=== PATIENT | female | born 1975 | race Caucasian/White ===

== ENCOUNTER 2018-05-20 09:13 | Inpatient (IN) | payer OTHER, SELFPAY ==
[2018-05-20] MEDS ORDERED: Ondansetron HCl/PF 4 MG/2 ML Vial ONE (11:57)
[2018-05-20 12:04] LABS: Hemoglobin 4.1 g/dL (12.0-16.0); Mean Corpuscular HGB CONC 29.3 g/dL (32.0-36.0); Mean Corpuscular Hemoglobin 18.3 pg (27.0-31.0); Mean Corpuscular Volume 62.5 fL (78.0-98.0); Mean Platelet Volume 10.2 fL (7.4-10.4); Platelet Count 390 thou/uL (130-400); RBC Distribution Width 18.2 % (11.5-14.5); Red Blood Cell (RBC) Count 2.21 mill/uL (4.20-5.40); White Blood Cell (WBC) Count 8.6 thou/uL (4.8-10.8)
[2018-05-20 12:20] LABS: #Monocytes 0.4 thou/uL (0.11-0.59); #Neutrophils 6.2 thou/uL (1.40-6.50); %Basophils 0.5 % (0.0-1.0); %Eosinophils 0.2 % (0.0-10.0); %Lymphocytes 23.1 % (21.0-51.0); %Monocytes 4.6 % (0.0-10.0); %Neutrophils 71.5 % (42.0-75.0); Anisocytosis SLIGHT = 6-15 cells (100X) (0-5/hpf); Band 1 % (5-11); Hypochromia SLIGHT = 6-15 cells (100X) (0-5/hpf); Lymphocytes 8 % (21-51); MDiff Complete? YES; Monocytes 4 % (0-10); Neutrophil 87 % (42-75); PLT Morphology Comment Appears Adequate
[2018-05-20 15:06] VITALS: BMI 33.0
[2018-05-20] MEDS ORDERED: traMADol HCl 50 MG TAB PO PRN (15:52)
[2018-05-20] MEDS ORDERED: Acetaminophen 500 MG TAB PO PRN (15:52)
[2018-05-20] MEDS ORDERED: Ondansetron ODT 4 MG TAB PO PRN (15:52)
[2018-05-20] MEDS ORDERED: Morphine 2 MG/ML SYRINGE SLOW IVP PRN (16:10)
--- NOTE | 2018-05-20 17:56 | ULT ---
TRANSABDOMINAL AND TRANSVAGINAL PELVIC ULTRASOUND WITH DOPPLER: Date: 05-20-18 Provided Clinical History: Vaginal bleeding. FINDINGS: The uterus measures about 7.3 x 5.3 x 4.3 cm and demonstrates a heterogeneous appearance to the uteri ne myometrium without evidence for focal myometrial mass. There is prominent thickening of the uterin e endometrium, which appears somewhat heterogeneous. Thickness measures up to 1.9 cm. Right ovary measures about 3.8 x 2.8 x 2.7 cm and demonstrates an unremarkable transabdominal sonogra phic appearance. The left ovary is not distinctly identified. Color doppler and spectral analysis of the right ovarian waveform demonstrates normal flow. No significant free pelvic fluid. IMPRESSION: 1. Thickened and somewhat heterogeneous appearing endometrium. The imaging appearance is nonspecific. Consider correlation with tissue sampling or sonohystoagraphy. POS: PETRA
[2018-05-20 18:57] LABS: INR-International Normal Ratio 1.2; PTT 27.4 SEC (22.9-36.1); Prothrombin Time 15.1 SEC (12.0-14.7)
--- NOTE | 2018-05-20 19:45 | HP ---
DATE OF ADMISSION: 05/20/2018 PRIMARY CARE PHYSICIAN: Susie Renae. PRIMARY CANDLEMAKING LABORER: Dr. Salo Montenegro in [place], [place]. CHIEF COMPLAINT: Vaginal bleeding and dizziness and dizziness. HISTORY OF PRESENT ILLNESS: This is a 43-year-old female who [facility] complaining of increased dizziness, feeling like she was going to pass out while shoppin g. The patient admits to associated heavy vaginal bleeding over the last several months after being prescribed anticoagulation to include Pletal, aspirin and Plavix due to history of peripheral vascula r occlusion in the left lower extremity. The patient states she was originally diagnosed with a thro mbosis approximately 3 years prior to this evaluation while taking control pills. The patient was treated with anticoagulation for several months, then discontinued on the therapy. The patient s tates in 02/2018 she noticed discoloration to her toes on the left foot, undergoing evaluation by Vas cular Surgery Service in the [facility] [place], [place]. The patient was noted with occlusion w ith only 1 patent artery with recommendations for medical management. The patient was placed on Plet al, Plavix, and full strength aspirin. The patient states she had heavy menstrual cycles while takin g the anticoagulation and aspirin therapy with large clots passed each month. The patient states she has undergone a battery of recent blood tests by her primary self rising flour mixer within the last week prior to this evaluation. The patient noted increasing fatigue, weakness, dizziness, and shortness of grace ath over the last several months. The patient denies any prior history of blood transfusions. The p chica was transferred from the outside Emergency Department to [facility] after patient's h emoglobin was noted at 4.1. The patient was typed and crossed for 4 units and is currently receiving the second unit out of 4 units total. The patient underwent evaluation after arrival to the [facility] unit including transvaginal ultrasound by SHORTHAND REPORTER services; however, the final results are pen ding. PAST MEDICAL HISTORY: 1. Left lower extremity arterial occlusion in 2014. 2. Recurrent left lower extremity arterial occlusion with anticoagulation initiated in 02/2018. 3. Menorrhagia secondarily to anticoagulation persistent. PAST SURGICAL HISTORY: Status post angiography of the left lower extremity with arterial stent place ment x2 in the left lower extremity. CURRENT MEDICATIONS: 1. Eliquis 5 mg p.o. b.i.d. initiated in the last 4 weeks. 2. Enteric coated aspirin 81 mg p.o. daily. 3. Lipitor 40 mg p.o. daily. 4. Plavix 75 mg p.o. daily. ALLERGIES: IODINE and CONTRAST MATERIAL. FAMILY HISTORY: No inheritable diseases per patient report. SOCIAL HISTORY: The patient resides in the [place], [place] area. Working in the [employer] currently. Positive tobacco use up to half a pack of cigarettes daily. No alcohol or illicit drug use. Accompanied by her daughter and parents in the hospital. REVIEW OF SYSTEMS: The following complete review of systems was negative, unless otherwise mentioned in the HPI or below: Constitutional: Weight loss or gain, ability to conduct usual activities. Skin: Rash, itching. Eyes: Double vision, pain. ENT/Mouth: Nose bleeding, neck stiffness, pain, tenderness. Cardiovascular: Palpitations, dyspnea on exertion, orthopnea. Respiratory: Shortness of breath, wheezing, cough, hemoptysis, fever or night sweats. Gastrointestinal: Poor appetite, abdominal pain, heartburn, nausea, vomiting, constipation, or diarrhea. Genitourinary: Urgency, frequency, dysuria, nocturia. Musculoskeletal: Pain, swelling. Neurologic/Psychiatric: Anxiety, depression. Allergy/Immunologic: Skin rash, bleeding tendency. PHYSICAL EXAMINATION: VITAL SIGNS: On admission, blood pressure 141/80, pulse 94, respiratory rate 16, temperature 98.3 de grees Fahrenheit, O2 saturation 100% on room air. GENERAL APPEARANCE: This is a 43-year-old female, pale-appearing, alert, responsive, tearf ul. HEENT: Pupils are equal, round, and reactive to light and accommodation. Extraocular muscles are in tact. No scleral icterus, no conjunctival injection. Nares patent. OP is clear. Teeth in fair rep air. NECK: Supple, no cervical adenopathy, no thyromegaly, no carotid bruits, no JVD appreciated. Cervic al spine with full active and passive range of motion. No meningeal signs appreciated. CHEST: Lungs are clear to auscultation bilaterally. CARDIOVASCULAR: S1, S2 without noted murmur, rub or gallop. ABDOMEN: Rounded with mild tenderness to palpation in the left lower quadrant. No rebound or guardi ng appreciated. Bowel sounds are positive in all four quadrants. No palpable mass. EXTREMITIES: Warm and dry with fair turgor. No clubbing, cyanosis or asymmetric edema appreciated. Pulses are palpable distally at the dorsalis pedis, posterior tibial, and popliteal arteries bilater ally. Capillary refill less than 2 seconds. NEUROLOGIC: Cranial nerves II-XII are grossly intact. No focal or lateralizing signs appreciated. PERTINENT LABORATORY AND X-RAY FINDINGS: Serum beta hCG less than 1.20. CBC showed a white blood ce ll count 8.6, hemoglobin 4, hematocrit 13.8, MCV of 63, platelet count 390 with 87% neutrophilia. Pe lvic/transvaginal ultrasound pending at the time of this dictation. Telemetry monitoring by my inter pretation shows sinus rhythm with heart rates in the 80s. ASSESSMENT AND PLAN: 1. Menorrhagia. Suspect multifactorial in conjunction with ongoing anticoagulation with Eliquis, Pl avix, and aspirin. We will hold all anticoagulation. SHORTHAND REPORTER consultation obtained with transvaginal ul trasound performed with results pending. Surgical intervention and options pending. 2. Acute blood loss anemia secondary to chronic anticoagulation. See #1 above. Type and cross for a total of 4 units of packed red blood cells. Serial CBC monitoring. We will obtain Hematology labo ratory values and workup from patient's primary self rising flour mixer in [place], [place]. 3. Left lower extremity peripheral vascular disease. Stable currently. We will hold all anticoagul ation secondary to #1 and #2. 4. We will continue supportive management. 5. Dyspnea. Suspect secondarily to acute anemia. Continue supportive management as outlined previo usly and monitor oxygen saturation. 6. Prophylaxis. Sequential compression devices held due to history of peripheral vascular disease. No anticoagulation due to acute blood loss anemia. Pepcid 20 mg p.o. b.i.d. 7. Code status is FULL. Surrogate medical decision maker is the patient's mother.
[2018-05-20] MEDS: Famotidine 20 MG TAB PO SCH (20:45)
[2018-05-20] MEDS: Sodium Chloride 0.9% 1,000 ML IV SCH (20:45)
--- NOTE | 2018-05-21 01:26 | CON ---
DATE OF CONSULTATION: 05/20/2018 CONSULTING PHYSICIAN: Jose Maria Escalante M.D. CHIEF COMPLAINT: Vaginal bleeding with symptomatic anemia. 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 The patient reports that she in the last month she has experienced increasing shortness of breath, dizziness, and overall fatigue and weakness. The patient reports her vaginal bleeding has acutely gotten worse in the recent days. Baseline for the last several years has been bleeding about 3 or more weeks out of the month that she goes through multiple pads a day and yesterday went through about 11. Today she reports since 5:30 this morning, she has had a change her pad 3 times. The patient has recently been changed from an oral form of heparin to Eliquis prior to this bleeding really getting worse and upon communicating with her provider, she was instructed to stop taking Eliquis yesterday with around noon. The patient reports that she has a history of peripheral artery disease. She had lower extremity arterial occlusion x3 and has had 2 stents placed in the last 3 years. She reports the name of her primary welding machine operator resistance is Dr. Ritchie Montenegro at [facility] in [place], phone number [phone]. On initial evaluation in [facility] emergency room, the patient was noted to have a hemoglobin of 4.2 and a hematocrit of 12.6 and her previous ER records from [facility], there is a documentation that she had a hemoglobin of 9 approximately 4 months prior to this visit and since arrival, all of her Plavix and her aspirin and have also been discontinued by her primary physician, Dr. Hernández. She reports that she has had less bleeding and again she changed her pad 3 times since about 5:30 this morning. PAST MEDICAL HISTORY: Peripheral arterial disease with previous occlusions. PAST SURGICAL HISTORY: Multiple surgeries for arterial stenting. SOCIAL HISTORY: Positive tobacco use, denies alcohol or drug use. 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 ALLERGIES: IODINE and IODINE CONTAINING PRODUCTS. MEDICATIONS: Eliquis 5 mg taken daily until yesterday was her last dose, aspirin 81 mg daily, Lipitor 40 mg daily, and Plavix 75 mg. REVIEW OF SYSTEMS: The patient reports increased dizziness, shortness of breath , overall weakness, increasing fatigue, abdominal cramping, nausea, and vaginal bleeding. The patient denies weight changes. Denies rash or itching. Denies chest pain. Denies poor appetite, diarrhea or constipation. Denies urinary urgency or frequency. Denies skin rash. PHYSICAL EXAMINATION: VITAL SIGNS: Blood pressure 117/65, satting 100% on room air, respiratory rate 20, temperature 99.0, pulse of 83. GENERAL: The patient appears to be in no acute distress. She appears worried at times in our conversation. She, time of our conversation, was receiving her second unit of blood and had color returning to her face since the initial contact today made with her and her family. HEAD: Normocephalic, atraumatic. LUNGS: Clear to auscultation bilaterally. HEART: Regular rate and rhythm. ABDOMEN: Soft. EXTREMITIES: Nontender, nonedematous. LABORATORY DATA: Hemoglobin on arrival this morning, she has had a white count of 8.6, hemoglobin of 4.1, hematocrit 13.8, platelets of 390,000. Quantitative hCG of less than 1. PT of 15.1, INR of 1.2, PTT of 27.4. A transvaginal ultrasound shows a uterus measuring 7.3 x 5.3 x 4.3 cm without any evidence of focal myometrial masses, report describes an endometrial lining of up to 1.9 cm. Right ovary is measuring about 3.8 x 2.8 x 2.7 cm. EKG at outside facility showed sinus rhythm. CMP at outside facility shows sodium of 140, potassium of 3.3, chloride of 107, glucose of 105, BUN of 8, creatinine of 0.6, ALT of 15, AST of 17, total bilirubin of 0.6. ASSESSMENT AND PLAN: The patient is a 43-year-old female with a history of peripheral artery disease and prior occlusions of her lower extremities resulting in multiple surgical interventions and stent placement. The patient most recently has been placed on Eliquis, continued on Plavix and aspirin resulting in increasing intensity of her vaginal bleeding with acute on chronic blood loss. The patient has been ordered 4 units of packed red blood cells thus far during this hospitalization. Her bleeding appears to be spontaneously slowing down since discontinuation of her Eliquis yesterday and having her Plavix and aspirin held this morning. In our discussions, patient reports that she has had some conversations with previous physicians about the need for amputation given the severity of her disease; however, received a second opinion , questioning the benefits of such extreme management. Nonetheless, the patient sounds to be dealing with a severe situation requiring persistent anticoagulation. After discussing the case with her primary Machine Technician Dr. Montenegro and partners plan at this time is proceed to the operating room tomorrow for hysteroscopy, D&C, and endometrial ablation in the hopes of resolving her likely source of prolonged bleeding and symptomatic anemia. Any pathology from her curettings that require further surgical management will be dealt with at that time. I believe at this time adding any medical management to slow her bleeding down will only worsen her risk for further clotting in her lower extremities and worsening of her disease. Should the patient's bleeding worsen tonight, we will proceed to the operating room sooner, otherwise plans are for tomorrow morning. After the patient has received 4 units of packed red blood cells and is in a better position for any potential complications of this surgical intervention. I have discussed these options with the patient and her family and they welcome the chance of completely resolving uterine bleeding and are aware of the increased risk of coagulation due to surgical intervention. Once this procedure was completed, discussion will be had with her primary physicians for restarting her anticoagulation once again. STACEY
--- NOTE | 2018-05-21 01:47 | CON ---
DATE OF CONSULTATION: 05/20/2018 Ms. Nieves is a 43-year-old female. She gets her care in [place]. She has a journeyman power plant operator/oncologist and a vascular doctor. She has had problems with severe peripheral vascular disease. She is actually on aspirin, Plavix, and Eliquis. She has had peripheral vascular stenting. She tells me that she has been vaginal bleeding for two straight months. Three years prior to this admission, she was diagnosed with an arterial thrombus while on oral contraceptive agents. I know there is a potential leak between oral contraceptives and venous thrombosis, but most people feel that there is usually another contributing factor. It is agreed that with a thrombotic event, hormone therapy should be discontinued. I am not aware of any literature that links it to arterial thrombosis. I asked her about Buerger disease, and she says 3 years ago, she remembers hearing that name, but her last doctor has told her that she only has "peripheral arterial disease." She apparently has not contacted anybody for her vaginal bleeding until yesterday. She was told to stop her Eliquis yesterday. She became short of breath and decided to come to the emergency room. Her hemoglobin was 4.1. When I inquired as to why she put up with excessive vaginal bleeding for 2 months, she started crying and asked me to go get her father. SOCIAL HISTORY: She has been a smoker in the past. She denies smoking now. PAST MEDICAL HISTORY: Remarkable for lower extremity stent placement, the location is unclear. FAMILY HISTORY: Negative for lung disease at an early age. There is no history of clotting disorders. MEDICATIONS PRIOR TO ADMISSION: Shows Eliquis twice a day, aspirin 81 mg a day , Lipitor 40 mg a day, and Plavix 75 mg a day. ALLERGIES: She reports a CONTRAST allergy. SOCIAL HISTORY: She lives in [facility]. She is working in this area. She has been a half a pack a day smoker. When I asked her if she was smoking, she looked at the other 2 people in the room and then looked back at me and said no. REVIEW OF SYSTEMS: 10 point review of system completed, otherwise negative. PHYSICAL EXAMINATION: GENERAL: Ms. Nieves is a 43-year-old female. VITAL SIGNS: She is afebrile, heart rate 79, respiratory rate is 23, oximetry is 100% on room air, blood pressure 132/69. HEENT: Pupils are equal. Sclerae is anicteric. NECK: Supple. No lymphadenopathy. LUNGS: Clear. HEART: Regular rhythm, no S3. ABDOMEN: Soft and nontender. EXTREMITIES: Without clubbing, cyanosis, or edema. LABORATORY DATA: Hemoglobin was 4.1, MCV 62. This is a lower MCV than I would expect from pure iron deficiency. I would wonder if she does have a coexistent thalassemia. IMPRESSION: 1. Blood loss anemia. 2. ? coexistent thalassemia. 3. Peripheral vascular disease ?Buerger's disease. Unfortunately, she continues to smoke. I did not take discuss loss of the limb with her because of her emotional response to a very simple comment earlier in the interview. She is certainly at risk for dying if she continues to smoke or having a devastating peripheral vascular event. Her clerk general office should be consulted for either a uterine ablation, a hysterectomy or hormonal therapy. If the plan is to keep her on Eliquis (I am not sure whether or not she has hereditary prothrombotic condition such as antithrombin III) that hormone therapies not really contraindicated since she will be fully anticoagulated and that this will stop her menses, it will probably keep her from bleeding to . At this point in time, she is off anticoagulation. It would be helpful if we have medical records from [place]. This is a 70 minute consult, with greater than 50% of time spent on unit with coordination of care. STACEY
[2018-05-21] MEDS: Sodium Chloride 0.9% 1,000 ML IV SCH ×3 (03:00→21:42)
[2018-05-21 04:16] LABS: Anion Gap 11 mmol/L (10-20); BUN (Urea Nitrogen) 8 mg/dL (7.0-18.7); Calc. Creatinine Clearance 149 mL/min (70-130); Calcium 8.3 mg/dL (7.8-10.44); Carbon Dioxide 21 mmol/L (22-29); Chloride 108 mmol/L (98-107); Estimated GFR-MDRD Greater than 90; Glucose 97 mg/dL (70-105); Sodium 136 mmol/L (136-145)
[2018-05-21 04:59] LABS: Hemoglobin 8.1 g/dL (12.0-16.0); Hypochromia SLIGHT = 6-15 cells (100X) (0-5/hpf); Lymphocytes 36 % (21-51); MDiff Complete? YES; Mean Corpuscular HGB CONC 32.6 g/dL (32.0-36.0); Mean Corpuscular Hemoglobin 24.3 pg (27.0-31.0); Mean Corpuscular Volume 74.7 fL (78.0-98.0); Monocytes 3 % (0-10); Neutrophil 61 % (42-75); Nucleated RBC 2 % (0); PLT Morphology Comment Appears Adequate; Platelet Count 289 thou/uL (130-400); Polychromasia SLIGHT = 2-3 cells (100X) (0-2/hpf); RBC Distribution Width 22.4 % (11.5-14.5); Red Blood Cell (RBC) Count 3.33 mill/uL (4.20-5.40); White Blood Cell (WBC) Count 7.8 thou/uL (4.8-10.8)
[2018-05-21] MEDS: Ondansetron HCl/PF 4 MG/2 ML Vial IVP PRN ×2 (07:20→16:35)
[2018-05-21] MEDS: Atorvastatin Calcium 40 MG TAB PO SCH (08:57)
[2018-05-21] MEDS: Famotidine 20 MG TAB PO SCH ×2 (08:57→21:33)
--- NOTE | 2018-05-21 09:03 | PDOC.EVN ---
Event Note - Event Note Event Note: HD 2 OBGYN control valve mechanic Informed Consent process Case reviewed with Dr Valentin. patient seen at bedside with Dr valentin, in room. Patient's RN in room for informed consent. Details on hysteroscopy/D&C/ Ablation given. Failure to diagnose malignancy pre-ablation discussed. Plan for ablation pre-D&C result is due to severity of HMB requiring blood products (4 units). Risks of uterine injury and injury to surrounding structures discussed. Limitation of fertility post ablatiion also discussed. Need for subsequent hysterectomy as a risk also reviewed. Patient given opportunity to ask questions. Answers provided. Patient now off elaquiz and plavix, ASA. Plan to restart elaquis 12-24 hours after ablation. We are on-call to OR with preliminary time set as 1100 today if space available.
[2018-05-21] MEDS ORDERED: Succinylcholine Chloride 20 MG/ML 10 ml SYRINGE FS ONE (10:28)
[2018-05-21] MEDS ORDERED: Ondansetron HCl/PF 4 MG/2 ML Vial ONE (10:28)
[2018-05-21] MEDS ORDERED: Ketorolac Tromethamine 30 MG/ML VIAL ONE (10:28)
[2018-05-21] MEDS ORDERED: PROPOFOL 200 MG/20 ML VIAL ONE (10:28)
[2018-05-21] MEDS ORDERED: Metoclopramide HCl 10 MG/2 ML VIAL ONE (10:28)
[2018-05-21] MEDS ORDERED: Lidocaine 1% PF 5 ML VIAL ONE (10:28)
[2018-05-21] MEDS ORDERED: Dexamethasone 20 MG/5 ML VIAL ONE (10:28)
--- NOTE | 2018-05-21 10:57 | PRG ---
DATE OF SERVICE: 05/21/2018 Ms. Nieves is bleeding a small amount. PHYSICAL EXAMINATION: VITAL SIGNS: She is afebrile, heart rate 70, respiratory rate 18, oximetry is 95-100% on room air, b lood pressure 121/74. LABORATORY: Hemoglobin is up to 8.1 grams. Platelets are normal. LUNGS: Clear. CARDIOVASCULAR: Regular rhythm. ABDOMEN: Nontender. IMPRESSION: Massive chronic vaginal blood loss secondary to anticoagulation. She is tentatively on the schedule for a uterine ablation she tells me. She needs to be restarted on her antiplatelet agents as soon as possible given her peripheral arteria l stents. It would be nice if we had medical records from her health care social worker/oncologist to see what th e true nature of her chronic illness is.
[2018-05-21] MEDS ORDERED: Fentanyl 100 MCG/2 ML VIAL ONE ×2 (12:36→15:09)
[2018-05-21] MEDS ORDERED: Midazolam HCl 2 mg/2 ml Vial ONE (13:04)
[2018-05-21] MEDS ORDERED: Lidocaine 4% Topical Sol 50 ML BOT ONE (13:05)
[2018-05-21] MEDS ORDERED: HYDROmorphone 2 MG/ML VIAL SLOW IVP PRN (14:29)
[2018-05-21] MEDS ORDERED: Ondansetron HCl/PF 4 MG/2 ML Vial IVP PRN (14:29)
[2018-05-21] MEDS ORDERED: Meperidine HCl/PF 25 MG/ML VIAL SLOW IVP PRN (14:29)
[2018-05-21] MEDS ORDERED: Promethazine HCl 25 MG/ML VIAL SLOW IVP PRN (14:29)
[2018-05-21] MEDS ORDERED: Promethazine HCl 25 MG/ML VIAL IM PRN (14:29)
[2018-05-21] MEDS ORDERED: HYDROmorphone 2 MG/ML VIAL ONE (14:33)
[2018-05-21] MEDS ORDERED: Labetalol HCl 100 MG/20 ML VIAL ONE (14:35)
--- NOTE | 2018-05-21 14:43 | OP ---
DATE OF PROCEDURE: 05/21/2018 PREOPERATIVE DIAGNOSES: Patient with suspected peripheral vascular disease on Eliquis previously, also on Plavix and aspirin, with acute vaginal blood loss resulting in severe anemia. POSTOPERATIVE DIAGNOSES: 1. Patient with suspected peripheral vascular disease on Eliquis previously, also on Plavix and aspirin, with acute vaginal blood loss resulting in severe anemia. 2. Status post endometrial ablation with Bhargavi procedure. 3. Diagnostic hysteroscopy. 4. Sharp endometrial curettage. 5. Bhargavi endometrial ablation after cervical dilation to 6 mm. SURGEON: Mickey Foreman M.D. UTILITY WORKER FILM PROCESSING: None. IV FLUIDS: 350 mL crystalloid. URINE OUTPUT: By in and out catheter, about 300 mL ESTIMATED BLOOD LOSS: About 15 mL. COMPLICATIONS: None. COUNTS: Correct. PATHOLOGY: Scant endometrial curettings. FINDINGS: 1. There are no vulvar or vaginal lesions. 2 The endometrial cavity is identified and is free of intracavitary defects. 3. Both ostia are seen. 4. There is scant endometrial tissue with no evidence of proliferative endometrial lining. 5. Uterine cavity size is about 7 with a cervical size of about 3 taken the cavity length to about 4.5. 6. Bhargavi with appropriate 120 second count down from start to finish. 7. Hemostasis post-procedure. Counts correct. DISPOSITION: To recovery room in good and stable condition. TECHNIQUE: After proper informed consent was explained to the patient earlier in the morning at bedside, we took the patient down to room #12 in the main OR. She was placed under general endotracheal anesthesia and positioned in Manuel stirrups without deep hyperflexion or external rotation. The patient's vulva and vagina was prepped and draped in the usual sterile fashion. In and out catheterization of the bladder revealed clear urine about 300 mL. A Graves bivalve speculum was used to visualize the cervix and there was scant vaginal bleeding noted with a small blood clot noted at the cervical os. The cervical os appeared parous and easily accepted a [employer] diagnostic hysteroscope without the use of dilation. We used hydrodilation of the cervix. As the scope entered atraumatically into the cavity, cavity was seen without any overt abnormalities. The scope was then removed and we performed a sharp curettage with the curettings going onto a piece of Telfa. We then used the Bhargavi endometrial ablation device per few instructions, first taking the array length to 4.5, which was the suspected size of the cavity. We then held the vacuum, but in order collapse the array tip in order to it enter atraumatically. Once it was entered, the cervical cuff balloon was inflated with air per IFU. After passing the cavity integrity test, the nerve ablation was done without complication. The cervical cuff was released and the Bhargavi array was withdrawn into the device and it was pulled out of the endometrial cavity without complication. No vaginal packs or sponges or tampons were used. The patient will go to recovery for routine recovery care. STACEY
--- NOTE | 2018-05-21 14:52 | PRG ---
DATE OF SERVICE: 05/21/2018 TIME OF DICTATION: 14:38 TIME OF INTERVENTION: 14:20 POSTOP FOLLOWUP In brief, I discussed with the patient's family (mother, , family friend), the details of the surgery. No complications were identified and this was relayed to them. I advised them to have gyne cology followup for Ms. Nieves in 2 weeks at [facility]. She has a followup appoint ment with Hematology/Oncology in [place] on Thursday and advised them to keep that appointment so that they can discuss restarting the anticoagulant. I have also given a report to Dr. Hernándze with Internal Medicine, who is following this patient as well. I told him that we would effectively sign off now that she has had her treatment. We will follow up the pathology results and the vaginal bleeding in 2 weeks as an outpatient at [facility].
[2018-05-21] MEDS: Lactated Ringer's 1,000 ML IV SCH ×2 (16:35→21:44)
--- NOTE | 2018-05-21 17:21 | PDOC.PN ---
- Subjective Encounter Start Date: 05/21/18 Encounter Start Time: 17:10 Subjective: f/u for menorrhagia s/p uterine ablation and 4u PRBC's. Hgb 8 up from -: 4. Feels better overall. - Objective Resuscitation Status: Resuscitation Status FULL:Full Resuscitation MAR Reviewed: Yes Vital Signs & Weight: Vital Signs (12 hours) Temp Pulse Resp BP Pulse Ox 05/21/18 10:58 97.9 F 65 16 133/78 05/21/18 08:00 100 05/21/18 07:37 97.8 F 75 18 121/74 95 Weight Admit Weight 198 lb 14.4 oz Weight 198 lb 14.4 oz I&O: 05/20/18 05/21/18 05/22/18 06:59 06:59 06:59 Intake Total 1650 0 Output Total 1250 Balance 400 0 Result Diagrams: 05/21/18 03:36 05/21/18 03:36 Additional Labs: Laboratory Tests 05/20/18 05/21/18 10:38 03:36 Hgb 4.1 L* MCV 62.5 L Neutrophils % (Manual) 87 H 61 EKG Reviewed by me: Yes (Tele - SR) Phys Exam - Physical Examination alert, responsive Respiratory: no wheezing, no rales, no rhonchi, clear to auscultation bilateral S1, S2 Cardiovascular: RRR, no significant murmur, no rub, gallop Gastrointestinal: soft, non-tender, no distention, positive bowel sounds diminished L DP compared to R, cool L great and 2nd toe Musculoskeletal: no edema, pulses present Neurological: moves all 4 limbs Psychiatric: A&O x 3 Skin: normal turgor, cap refill <2 seconds Dx/Plan (1) Menorrhagia Code(s): N92.0 - EXCESSIVE AND FREQUENT MENSTRUATION WITH REGULAR CYCLE Status : Acute Comment: Due to Xarelto and endometrial thinning, s/p endometrial ablation, hold all anticoagulation (2) Acute blood loss anemia Code(s): D62 - ACUTE POSTHEMORRHAGIC ANEMIA Status: Acute Comment: s/p 4u PRBC's, serial H/H (3) Blood transfusion during current hospitalisation Code(s): SCG8979 - Status: Acute Comment: 4u PRBC's total (4) S/P endometrial ablation Code(s): Z98.890 - OTHER SPECIFIED POSTPROCEDURAL STATES Status: Acute (5) Nausea Code(s): R11.0 - NAUSEA Status: Acute Comment: Zofran IV prn - Plan Stable overall -: Serial H/H -: Hold all anticoagulation -: Resume ASA/Plavix in 24h -: AM lab: H/H, TSH * Likely home in 24h
--- NOTE | 2018-05-21 19:28 | PDOC.EVN ---
Event Note - Event Note Event Note: Patient seen as postop routine. A&O, doing well. Ablation reviewed with her. No void yet from PACU...bladder scan performed by RN at bedside with me in room and max volume suspected..135 ml or so. No need for cath at this time. Will follow. Follow up at [facility] office in 2 weeks.
[2018-05-21] MEDS: Ketorolac Tromethamine 30 MG/ML VIAL IVP SCH (21:32)
[2018-05-22] MEDS: Ketorolac Tromethamine 30 MG/ML VIAL IVP SCH ×3 (01:44→11:28)
[2018-05-22] MEDS: Lactated Ringer's 1,000 ML IV SCH (09:32)
[2018-05-22] MEDS: Atorvastatin Calcium 40 MG TAB PO SCH (09:34)
[2018-05-22] MEDS: Famotidine 20 MG TAB PO SCH (09:34)
[2018-05-22 10:14] VITALS: BP 136/84; TEMP 98.4
--- NOTE | 2018-05-22 21:35 | DIS ---
DATE OF ADMISSION: 05/20/2018 DATE OF DISCHARGE: 05/22/2018 DISCHARGE DIAGNOSES: 1. Menorrhagia secondarily to Xarelto and endometrial thinning. 2. Status post endometrial ablation. 3. Acute blood loss anemia, status post 4 units of packed red blood cells. 4. Nausea, resolved. 5. Peripheral vascular disease with chronic anticoagulation. CONSULTATIONS: Dr. Mickey Foreman with [facility]. Dr. Anglin with Pulmonology Service. PERTINENT LABORATORY AND X-RAY FINDINGS: Basic metabolic profile within normal limits. Total beta h CG less than 1.2. TSH 0.45. CBC showed a hemoglobin ranging between 4.1-8.1, MCV ranged between 62. 5-75. PT 15.1, INR 1.2, PTT 27.4. Pelvic ultrasound dated 05/20/2018 showed thickened and somewhat heterogeneous appearing endometrium. HOSPITAL COURSE: Patient was admitted to the intermediate care unit after presenting with vaginal bl eeding in the context of chronic Eliquis, Plavix and aspirin therapy. The patient was discontinued o n all anticoagulation and evaluated by the [facility]. The patient was noted with initial hemogl obin of 4.1. Transfused 4 units of packed red blood cells with overall stabilization of hemodynamics . The patient underwent evaluation including pelvic ultrasound, proceeding to diagnostic hysteroscop y with endometrial curettage and endometrial ablation. Hemostasis was obtained and the patient was m onitored postoperatively with stable hemoglobin at the time of discharge. The patient recommended to continue off anticoagulation at this time and follow up with her primary screen stretcher for recommenda tions to resume or discontinue indefinitely. The patient overall remained clinically stable, tolerat ing regular oral intake with stable vital signs. I have examined the patient at the time of discharg e and discussed followup instructions. The patient overall clinically stable and ready for discharge on 05/22/2018. DISCHARGE MEDICATIONS: 1. Lipitor 40 mg p.o. daily. 2. Ferrous sulfate 325 mg p.o. b.i.d. FOLLOWUP: Patient will follow up with Dr. Montenegro with Hematology service in [place], [place] on 05/25. The patient will follow up with Dr. Mickey Foreman with [facility] 2-3 weeks after discharge. CONDITION ON DISCHARGE: Stable. ACTIVITY: Ad fernando. DIET: Regular. CODE STATUS: FULL. DISPOSITION: Home, 05/22/2018. Total time preparing and coordinating discharge is 35 minutes.
== END 2018-05-22 11:39 | disposition home or self-care (01) | DRG 742 ==
LOC: IMCU/EMU 12:35
PROVIDERS: ADMIT Internal Medicine; ATTEND Internal Medicine
PROC: 30233N1 Transfusion of Nonautologous Red Blood Cells into Peripheral Vein, Percutaneous Approach (ICD-10-PCS; principal; 2018-05-20)
PROC: 0U5B8ZZ Destruction of Endometrium, Via Natural or Artificial Opening Endoscopic (ICD-10-PCS; 2018-05-21)
PROC: 0UDB7ZX Extraction of Endometrium, Via Natural or Artificial Opening, Diagnostic (ICD-10-PCS; 2018-05-21)
DX: N92.0 Excessive and frequent menstruation with regular cycle (principal); D68.32 Hemorrhagic disorder due to extrinsic circulating anticoagulants; D62 Acute posthemorrhagic anemia; T45.515A Adverse effect of anticoagulants, initial encounter; I73.9 Peripheral vascular disease, unspecified; F17.210 Nicotine dependence, cigarettes, uncomplicated; Z95.820 Peripheral vascular angioplasty status with implants and grafts; Z79.01 Long term (current) use of anticoagulants; Z79.02 Long term (current) use of antithrombotics/antiplatelets; Z79.82 Long term (current) use of aspirin; Z88.8 Allergy status to other drugs, medicaments and biological substances
CPT/HCPCS: 36415; 36430; 76856; 80048; 84443; 84702; 85007; 85014; 85018; 85025; 85027; 85060; 85610; 85730; 86850; 86900; 86901; 88305; J1100; J1170; J1885; J2001; J2250; J2270; J2405; J2704; J2765; J3010; P9016